=== PATIENT | female | born 1995 | race Caucasian/White ===

== ENCOUNTER 2017-08-28 12:56 | Emergency (ER) | payer OTHER ==
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
[2017-08-28 13:50] VITALS: BP 118/74
== END 2017-08-28 13:49 | disposition home or self-care (01) ==
LOC: ED 12:56
DX: M54.2 Cervicalgia (principal); V89.9XXA Person injured in unspecified vehicle accident, initial encounter; Y92.9 Unspecified place or not applicable; Y93.9 Activity, unspecified; Y99.9 Unspecified external cause status
CPT/HCPCS: 99282